=== PATIENT | female | born 1955 | race Caucasian/White ===

== ENCOUNTER → 2017-08-31 | Outpatient (CLI) | payer MEDICARE, BC, MEDICAID ==
[~2017-08-31] MED LIST: ANTIFUNGAL1% TP; METROGEL GEL45 GM TP; MULTI VITAMINS1 TAB PO; NEURONTIN100 MG/CAP PO; NO HOME MEDICATIONS; REMERON 15M15 MG/TA1 PO; TYLENOL 325MG325 MG PO
== END ==
LOC: MC.RAD 11:06
DX: Z53.8 Procedure and treatment not carried out for other reasons (principal); Z12.31 Encounter for screening mammogram for malignant neoplasm of breast

== ENCOUNTER 2022-04-04 18:38 | Emergency (ER) | payer MEDICARE, BC, MEDICAID ==
[~2022-04-04] VITALS: Ht 162.6 cm; Wt 54.1 kg
[2022-04-04 18:39] VITALS: TEMP 99
[2022-04-04 20:41] VITALS: BP 117/71; PULSE 71
== END 2022-04-04 20:41 | disposition home or self-care (01) ==
LOC: COL.ER 18:38
DX: T17.328A Food in larynx causing other injury, initial encounter (principal)